=== PATIENT | male | born 1970 | race Caucasian/White ===

== ENCOUNTER 2016-07-19 12:14 | Emergency (ER) | payer OTHER | END 2016-07-19 13:17 | disposition home or self-care (01) | LOC: ER 12:14 | DX: S20.212A Contusion of left front wall of thorax, initial encounter (principal); F41.9 Anxiety disorder, unspecified; I10 Essential (primary) hypertension; F17.210 Nicotine dependence, cigarettes, uncomplicated; G43.909 Migraine, unspecified, not intractable, without status migrainosus; W28.XXXA Contact with powered lawn mower, initial encounter | CPT/HCPCS: 96372; J1885 ==